=== PATIENT | female | born 1960 | race Asian ===

== ENCOUNTER 2017-01-28 08:32 | Outpatient (CLI) | payer BC ==
[~2017-01-28] VITALS: Ht 175.3 cm; Wt 132.9 kg
== END 2017-01-28 10:00 | disposition home or self-care (01) ==
LOC: NM 08:32
DX: R07.89 Other chest pain (principal)
CPT/HCPCS: A9500; J2785

== ENCOUNTER 2019-11-30 08:47 | Outpatient (CLI) | payer OTHER ==
[~2019-11-30] VITALS: Ht 172.7 cm; Wt 131.5 kg
== END 2019-11-30 19:04 | disposition home or self-care (01) ==
LOC: NM 08:47
DX: Z01.810 Encounter for preprocedural cardiovascular examination (principal)
CPT/HCPCS: A9500; J2785